=== PATIENT | female | born 1960 | race Caucasian/White ===

== ENCOUNTER 2022-10-07 03:37 | Emergency (ER) | payer OTHER ==
[2022-10-07] MEDS ORDERED: IBUPROFEN 600 MG TABLET (FP) PO ONE ×2 (03:45→04:11)
[2022-10-07] MEDS ORDERED: diazePAM 5 MG TABLET PO ONE (03:45)
[2022-10-07 03:55] VITALS: RESP 18; BMI 38.6
[2022-10-07] MEDS ORDERED: diazePAM 5 MG TABLET ONE (04:11)
[2022-10-07] MEDS ORDERED: ACETAMINOPHEN 1000 MG/100 ML BAG IVPB ONE (04:13)
[2022-10-07 06:37] LABS: BASO % 0.8 % (0-2.0); EOS % 2.8 % (0-4.5); HEMATOCRIT 35.9 % (32.4-45.2); HEMOGLOBIN 12.5 GM/dL (10.7-15.3); LYMPH % 12.2 % (8-40); MCH 30.6 pg (25.7-33.7); MCHC 34.7 g/dl (32.0-36.0); MEAN CELL VOLUME 88.1 fl (80-96); MEAN PLT VOLUME 8.3 fl (7.5-11.1); MONO % 5.7 % (3.8-10.2); NEUT % 78.5 % (42.8-82.8); PLATELET COUNT 238 10^3/uL (134-434); RBC 4.08 M/mm3 (3.60-5.2); RDW 14.2 % (11.6-15.6); WHITE BLOOD COUNT 9.3 K/mm3 (4.0-10.0)
[2022-10-07] MEDS ORDERED: SODIUM CHLORIDE 0.9% 500 ML INFUS.BAG IV ONE (08:00)
[2022-10-07 08:16] LABS: ALBUMIN 3.4 g/dl (3.4-5.0); BILIRUBIN,TOTAL 0.6 mg/dL (0.2-1); BLOOD UREA NITROGEN 18.8 mg/dL (7-18); CALCIUM 9.3 mg/dL (8.5-10.1); TOT PROT 7.6 g/dl (6.4-8.2)
[2022-10-07] MEDS ORDERED: DEXTROSE 5%-NORMAL SALINE 1,000 ML IV ONE (09:46)
[2022-10-07] MEDS ORDERED: KETOROLAC TROMETHAMINE 15 MG/ML VIAL IVPUSH ONE (10:20)
[2022-10-07] MEDS ORDERED: KETOROLAC TROMETHAMINE 15 MG/ML VIAL ONE (10:24)
[2022-10-07 10:58] LABS: INR 1.07 (0.83-1.09); PROTHROMBIN TIME (PATIENT) 12.4 SEC (9.7-13.0)
[2022-10-07 12:34] VITALS: BP 134/72; PULSE 67; TEMP 98.6
== END 2022-10-07 12:56 | disposition home or self-care (01) ==
LOC: FER 03:37
PROC: 3E033GC Introduction of Other Therapeutic Substance into Peripheral Vein, Percutaneous Approach (ICD-10-PCS; principal; 2022-10-07)
DX: K80.20 Calculus of gallbladder without cholecystitis without obstruction (principal); N13.30 Unspecified hydronephrosis; M51.36 Other intervertebral disc degeneration, lumbar region
CPT/HCPCS: 0241U-QW; 36415; 72131-TC; 72192-TC; 76705-TC; 80053; 83605; 83690; 85025; 85610; 93005; 99285-25